=== PATIENT | male | born 1965 | race Caucasian/White ===

== ENCOUNTER 2017-06-20 11:48 | Emergency (ER) | payer OTHER ==
[~2017-06-20] VITALS: Ht 162.6 cm; Wt 66.5 kg
[~2017-06-20 11:48] MED LIST: AMLO5TAB8 PO; AMOX500C25 PO; AZIT250T8 PO; COZ50 PO; METO50TA99 PO; SACC250C1 PO
[2017-06-20 12:28] VITALS: BP 145/89
--- NOTE | 2017-06-20 13:55 | NUR ---
PATIENT PRESENTS TO ED WITH C/O LEFT EYE PAIN WITH HEAD ACHE SINCE TUESDAY; DENIES FOREIGN BODY, N/V;HX OF DM, HTN;RX OF CLONIDINE, 0.35MG QD, ENALAPRIL /[id number] BID, METOPROLOL 100MG BID, RENVELA TAB 800MG TID . LT EYE IE REDDENED;DENIES N/V/D; SKIN IS PINK/WARM/DRY; AAOX4 WITH EVEN AND STEADY GAIT; LUNGS CLEAR BL; HR EVEN AND REGULAR; PT DENIES ANY FEVER, CP, SOB, OR COUGH AT THIS TIME; PATIENT STATES PAIN OF 8/10 AT THIS TIME;PATIENT POSITIONED FOR COMFORT; HOB ELEVATED; BEDRAILS UP X2; BED DOWN. ER MD MADE AWARE OF PT STATUS.
--- NOTE | 2017-06-20 15:04 | NUR ---
XRAY AT BEDSIDE.
[2017-06-20 15:05] LABS: EOSINOPHILS # (AUTO) 0.1 K/uL (0-0.4); HEMOGLOBIN 13.1 g/dL (12.0-18.0); NEUTROPHILS # (AUTO) 2.9 K/uL (1.8-7.7); PLATELET COUNT (AUTO) 137 K/uL (140-450)
[2017-06-20 15:10] LABS: BASOPHILS # (AUTO) 0.4 K/uL (0.00-0.22); HEMATOCRIT 40.2 % (36-52); LYMPHOCYTES # (AUTO) 1.6 K/uL (2.0-11.5); MEAN CORPUSCULAR HEMOGLOBIN 32 pg (27-31); MEAN CORPUSCULAR HGB CONC 33 g/dL (33-37); MEAN CORPUSCULAR VOLUME 97 fL (80-94); MONOCYTES # (AUTO) 0.8 K/uL (0.8-1.0); RED BLOOD CELL COUNT(AUTO) 4.13 MIL/uL (4.20-6.10); RED CELL DISTRIBUTION WIDTH 13.6 % (11.6-13.7); WHITE BLOOD COUNT (AUTO) 5.8 K/uL (4.8-10.8)
--- NOTE | 2017-06-20 15:10 | NUR ---
US AT BEDSIDE.
[2017-06-20 15:49] LABS: ALBUMIN 3.5 g/dL (3.4-5.0); CARBON DIOXIDE 33.8 mmol/L (21-32); POTASSIUM 5.8 mmol/L (3.5-5.1); TOTAL BILIRUBIN 0.6 mg/dL (0.0-1.0)
[2017-06-20 15:52] LABS: CREATININE 8.9 mg/dL (0.7-1.3)
[2017-06-20 16:05] LABS: PROTHROMBIN TIME 10.4 secs (10.8-13.4)
--- NOTE | 2017-06-20 16:30 | NUR ---
DR PINO AT BEDSIDE.
--- NOTE | 2017-06-20 16:34 | NUR ---
BP OF 160/100 ER MD NOTIFIED;
[2017-06-20] MEDS ORDERED: SODIUM POLYSTYRENE 15 GM/60 ML UDBTL PO ONE (16:35)
--- NOTE | 2017-06-20 16:55 | NUR ---
Patient discharged with v/s stable. Written and verbal after care instructions given and explained. Patient verbalized understanding. Ambulatory with steady gait. All questions addressed prior to discharge. Advised to follow up with AN OPTHALMOLOGIST IN [place].
[2017-06-20 16:56] VITALS: BP 160/100
== END 2017-06-20 16:55 | disposition home or self-care (01) ==
LOC: MED 11:48
DX: H33.22 Serous retinal detachment, left eye (principal); I10 Essential (primary) hypertension
CPT/HCPCS: 36415; 70450; 70480; 71010; 76881; 80053; 85025; 85610; 85730; 93005; 99285; Q0092

== ENCOUNTER 2017-10-16 10:45 | Inpatient (IN) | payer OTHER ==
[~2017-10-16] VITALS: Ht 162.6 cm; Wt 66.7 kg
[~2017-10-16 10:45] MED LIST changes: +AZIT250T11 PO; -AZIT250T8 PO
[2017-10-16 10:53] VITALS: BP 109/52
--- NOTE | 2017-10-16 10:53 | NUR ---
PATIENT PRESENTS TO ED WITH C/O SOB, COUGH AND CONGESTION . PT STATES HIS SYMPTOMS STARTED LAST NIGHT . PT C/O CHEST PAIN DUE TO COUGHT. DENIES N/V/D; SKIN IS PINK/WARM/DRY; AAOX4 WITH EVEN AND STEADY GAIT; BREATHING LABORED AND SHALLOW. HR EVEN AND REGULAR; PT DENIES ANY FEVER AT THIS TIME; AT THIS TIME; VSS; PATIENT POSITIONED FOR COMFORT; HOB ELEVATED; BEDRAILS UP X2; BED DOWN. ER MD MADE AWARE OF PT STATUS.
[2017-10-16] MEDS ORDERED: FURO-571 PO (11:02)
[2017-10-16] MEDS ORDERED: NIFE60TE5 PO (11:02)
[2017-10-16] MEDS ORDERED: ASPIRIN 81 MG TAB.CHEW PO ONE (11:25)
[2017-10-16] MEDS ORDERED: NITROGLYCERIN 2% 1 GM PKT TP ONE (11:25)
[2017-10-16] MEDS ORDERED: ALBUTEROL 0.083% 2.5 MG/3 ML NEBU INH ONE (11:25)
[2017-10-16] MEDS ORDERED: ENALAPRILAT 2.5 MG/2 ML VIAL IVP ONE (11:25)
[2017-10-16 11:39] LABS: BASOPHILS # (AUTO) 0.3 K/uL (0.00-0.22); BASOPHILS % (AUTO) 3.3 % (0.0-2.0); EOSINOPHILS # (AUTO) 0.2 K/uL (0-0.4); HEMATOCRIT 40.1 % (36-52); HEMOGLOBIN 12.8 g/dL (12.0-18.0); LYMPHOCYTES # (AUTO) 1.1 K/uL (2.0-11.5); LYMPHOCYTES % (AUTO) 12.3 % (20.5-51.1); MEAN CORPUSCULAR HEMOGLOBIN 32 pg (27-31); MEAN CORPUSCULAR HGB CONC 32 g/dL (33-37); MEAN CORPUSCULAR VOLUME 99 fL (80-94); MONOCYTES # (AUTO) 0.7 K/uL (0.8-1.0); MONOCYTES % (AUTO) 8.2 % (1.7-9.3); NEUTROPHILS # (AUTO) 6.5 K/uL (1.8-7.7); NEUTROPHILS % (AUTO) 74.2 % (42.2-75.2); PLATELET COUNT (AUTO) 337 K/uL (140-450); RED BLOOD CELL COUNT(AUTO) 4.03 MIL/uL (4.20-6.10); RED CELL DISTRIBUTION WIDTH 16.1 % (11.6-13.7); WHITE BLOOD COUNT (AUTO) 8.8 K/uL (4.8-10.8)
[2017-10-16 12:01] LABS: ALBUMIN 3.1 g/dL (3.4-5.0); ANION GAP 22.7 (8-16); CARBON DIOXIDE 21.8 mmol/L (21-32); POTASSIUM 5.5 mmol/L (3.5-5.1); TOTAL BILIRUBIN 0.6 mg/dL (0.0-1.0)
[2017-10-16 12:06] LABS: CREATININE 12.9 mg/dL (0.7-1.3)
[2017-10-16] MEDS ORDERED: HYDROcodone/APAP 7.5/325 MG 1 TAB PO PRN (12:45)
[2017-10-16] MEDS ORDERED: NITROGLYCERIN 0.4 MG TAB SL PRN (12:45)
[2017-10-16] MEDS ORDERED: ALBUTEROL SULFATE/IPRATROPIU 3 ML SOL IH PRN (12:45)
[2017-10-16] MEDS ORDERED: DOCUSATE SODIUM 100 MG GELCAP PO PRN (12:45)
[2017-10-16] MEDS ORDERED: ONDANSETRON 4 MG/2 ML VIAL IVP PRN (12:45)
[2017-10-16] MEDS ORDERED: HEPARIN PER PHARMACY MC PRN (12:45)
[2017-10-16] MEDS ORDERED: IPRATROPIUM 0.02% 0.5 MG/2.5 ML NEBU INH PRN (12:45)
[2017-10-16] MEDS ORDERED: ACETAMINOPHEN 325 MG TAB PO PRN (12:45)
[2017-10-16] MEDS ORDERED: SODIUM POLYSTYRENE 15 GM/60 ML UDBTL PO SCH (13:30)
[2017-10-16 13:49] LABS: PROTHROMBIN TIME 10.9 secs (10.8-13.4)
[2017-10-16 14:04] LABS: FREE T4 (FREE THYROXINE) 0.78 ng/dL (0.76-1.46); MAGNESIUM 2.5 mg/dL (1.8-2.4); PHOSPHORUS 5.5 mg/dL (2.5-4.9); THYROID STIMULATING HORMONE 4.7 uIU/mL (0.34-3.74)
--- NOTE | 2017-10-16 14:05 | NUR ---
RECEIVED PT REPORT FROM ER NURSE. PT IS AWAKE, ALERT AND ORIENTED X4. PT IS AMBULATORY WITH STEADY GAIT. PT CHIEF COMPLAIN WAS SOB AND COUGH. DX OF CHEST PAIN. HX OF ESRD AND ON HD MWF. LEFT AV SHUNT NOTED. BRUIT AND THRILL DETECTED. SIGN FOR NO BP ON LEFT SIDE POSTED. PT DENIES PAIN AT THIS TIME. NO S/S OF SOB OR ACUTE DISTRESS. PT IS ON 4L O2 VIA NON-REBREATHER. MRSA DONE. IV CATH NOTE TO THE RIGHT FA, 22G, FLUSHED, PATENT, INTACT. PT HAS BEEN ORIENTED TO THE ROOM, CALL LIGHT WITHIN REACH. WILL CONTINUE TO MONITOR.
--- NOTE | 2017-10-16 14:05 | NUR ---
Patient will be admitted to care of DR SOTO . Admited to [facility]. Will go to room 112A. Belongings list completed. Report to PRUDENCIO HOLGUIN.
[2017-10-16] MEDS: NACL 0.9% 1,000 ML IV SCH (14:28)
--- NOTE | 2017-10-16 14:30 | NUR ---
INITIAL ASSESSMENT DONE. MEDICAL HX OBTAINED WITH HELP OF PT'S DAUGHTER. PT AGREED TO USE HIS DAUGHTER EXTENSION AGENT.
[2017-10-16 14:38] VITALS: BP 195/129
--- NOTE | 2017-10-16 14:48 | NUR ---
FOUND PT ON NRB CHANGED TO 3L N/C SPO2 94 BS CLEAR PLACED NEW HHN SET UP BEDSIDE
[2017-10-16] MEDS ORDERED: IPRATROPIUM 0.02% 0.5 MG/2.5 ML NEBU INH SCH (15:00)
--- NOTE | 2017-10-16 15:30 | NUR ---
PT IS HAVING ECHOCARDIOGRAM. TURKEY SANDWICH LEFT AT THE BEDSIDE TABLE. PT IS AWARE.
[2017-10-16] MEDS ORDERED: FUROSEMIDE PO SCH (15:40)
[2017-10-16 16:00] VITALS: BP 189/131
[2017-10-16] MEDS ORDERED: LOSARTAN 50 MG TAB PO SCH (16:00)
[2017-10-16] MEDS ORDERED: FUROSEMIDE 40 MG TAB PO SCH (16:00)
[2017-10-16] MEDS ORDERED: NIFEdipine 60 MG TABER PO SCH (16:00)
--- NOTE | 2017-10-16 16:30 | NUR ---
NOTIFIED PHYSICIAN ABOUT ECHO FINDINGS.
[2017-10-16] MEDS: CALCIUM ACETATE 667 MG TAB PO SCH (16:31)
--- NOTE | 2017-10-16 16:49 | NUR ---
INSTRUCTED PT FOR SPUTUM SAMPLE CUP LEFT AT BEDSIDE
[2017-10-16] MEDS: AZITHROMYCIN 250 MG TAB PO SCH (17:15)
[2017-10-16] MEDS ORDERED: LEVOFLOXACIN 750 MG/D5W PREMIX 150 ML IV SCH (17:30)
--- NOTE | 2017-10-16 18:05 | NUR ---
PT STARTED COUGHING AND VOMITEDX1. NOTIFIED DR BLANCA. WILL PUT IN NEW ORDERS.
[2017-10-16] MEDS ORDERED: hydrALAZINE 20 MG/ML VIAL IVP SCH (18:10)
[2017-10-16] MEDS ORDERED: guaiFENesin/CODEINE 100/10MG 5 ML UDC PO PRN (18:10)
--- NOTE | 2017-10-16 18:35 | NUR ---
PTT VALUE CAME BACK, CALLED [facility], WAITING FOR APPROVAL AND INSTRUCTIONS.
[2017-10-16 18:49] VITALS: BP 186/115
[2017-10-16] MEDS: ALBUTEROL SULFATE/IPRATROPIU 3 ML SOL IH SCH (18:58)
[2017-10-16] MEDS: hePARIN / DEXT 5% PREMIX 250 ML IV SCH (19:12)
--- NOTE | 2017-10-16 19:20 | NUR ---
HEPARIN BOLUS GIVEN, HEPARIN DRIP STARTED 800 UNITS/ HR
--- NOTE | 2017-10-16 19:35 | NUR ---
ROBITUSSIN GIVEN TO INDUSTRIAL TRACTOR DRIVER NURSE.
--- NOTE | 2017-10-16 19:35 | NUR ---
ENDORSED PT TO PROJECT ENGINEERING DIRECTOR NURSE. PT IN STABLE CONDITION.
--- NOTE | 2017-10-16 19:36 | NUR ---
RECEIVED REPORT FROM DAY NURSE, PT IN STABLE CONDITION. NO S/S OF DISTRESS NOTED. PT IS AAOX4, ON 3L 02 VIA NC. IV TO R FA 22G, PATENT AND INTACT INFUSING WELL, HEPARIN DRIP RUNNING AT THIS TIME. IV TO R HAND 20G PATENT AND INTACT SALINE LOCK. SKIN INTACT, WARM AND DRY TO TOUCH, COLOR WNL. FAMILY IS AT THE BEDSIDE. INITIAL ASSESSMENT COMPLETED PLAN OF CARE DISCUSSED WITH PT AND FAMILY, VERBALIZED UNDERSTANDING. ALL SAFETY PRECAUTIONS MET, CALL LIGHT WITHIN REACH, BOARD UPDATED WILL CONTINUE TO MONITOR.
--- NOTE | 2017-10-16 19:53 | NUR ---
LAB CALLED WITH CRITICAL LAB VALUE FOR TROPONIN 0.431
--- NOTE | 2017-10-16 19:56 | NUR ---
MADE. DR. HERNÁNDEZ AWARE OF CRITICAL LAB VALUE FOR TROPONIN, NO CHANGE IN ORDERS AT THIS TIME
[2017-10-16 20:00] VITALS: BP 154/84
[2017-10-16] MEDS ORDERED: LORazepam 1 MG TAB PO SCH (20:05)
--- NOTE | 2017-10-16 20:10 | NUR ---
PT VERBALIZED THAT HE IS FEELING ANXIOUS AND HAVING ANXIETY, MADE DR. HERNÁNDEZ AWARE. HE WILL PUT IN ORDERS
[2017-10-16] MEDS: ATORVASTATIN 20 MG TAB PO SCH (20:16)
[2017-10-16] MEDS: LOSARTAN 50 MG TAB PO SCH (20:17)
[2017-10-16] MEDS ORDERED: METOPROLOL 25 MG TAB PO SCH (21:00)
--- NOTE | 2017-10-16 23:02 | NUR ---
PAGED DR. URBAN IN REGARDS TO PTS ORDER FOR DIALYSIS. DR. URBAN STATED HE HAS NOT SEEN THE PT YET, HE WILL SEE PT TOMORROW AND PUT ORDER IN.
[2017-10-17] VITALS: BP 152/84
--- NOTE | 2017-10-17 00:30 | NUR ---
MADE DR. HERNÁNDEZ AWARE OF NO CURRENT ORDERS FOR THIRD TROPONIN DRAW.
--- NOTE | 2017-10-17 01:39 | NUR ---
CHECKED PTS BP AND IT IS NOW 152/97 PULSE 101, NOTIFIED DR. HERNÁNDEZ, ORDERS TO BE PUT IN
[2017-10-17] MEDS ORDERED: METOPROLOL 25 MG TAB PO SCH (01:40)
--- NOTE | 2017-10-17 01:41 | NUR ---
EXTRA DOSE OF METOPROLOL TO BE STARTED 10/17/17 AT 0900
--- NOTE | 2017-10-17 02:15 | NUR ---
EXTRA DOSE METOPROLOL TO BE GIVEN NOW
--- NOTE | 2017-10-17 03:46 | NUR ---
PAGED LAB FOR UPDATED ON PTT LAB RESULTS NO ANSWER. WILL TRY AGAIN
[2017-10-17 04:00] VITALS: BP 150/75
--- NOTE | 2017-10-17 04:01 | NUR ---
YOAN IN LAB REPORTS THAT PTT IS 48.3, WILL FAX OVER RESULTS. NOT SHOWING IN THE COMPUTER. THIS IS WITHIN THE THERAPEUTIC RANGE.
[2017-10-17] MEDS: ALBUTEROL SULFATE/IPRATROPIU 3 ML SOL IH SCH ×3 (06:50→19:17)
--- NOTE | 2017-10-17 07:20 | NUR ---
REPORT GIVEN TO DAY NURSE FOR CONTINUITY OF CARE, PT IN STABLE CONDITION. NO S/S OF DISTRESS NOTED. IV PATENT AND INTACT, INFUSING WELL. NO REDNESS OR SWELLING NOTED
--- NOTE | 2017-10-17 07:30 | NUR ---
RECEIVED PT AAOX4. NO SOB NOTED. NO C/O PAIN AT THIS TIME. IV TO RT HAND HL, IV TO RT FORE ARM WITH HEPARIN DRIP RUNNING. LT LEFT ARM AV SHUNT, BRUITS AND THRILL HEARD. PT FOR HD MWF. CHEST CLEAR. ABDOMEN SOFT, BOWEL SOUNDS PRESENT. NO EDEMA NOTED. INSTRUCTED PT TO CALL FOR ASSISTANCE, CALL LIGHT WITHIN REACH. PT VERBALIZED UNDERSTANDING. Addendum: 10/17/17 at 1012 by Dorie Cornejo RN DISREGARD ABOVE NOTES, WRONG PT.
--- NOTE | 2017-10-17 07:30 | NUR ---
RECEIVED PT AAOX4. NO SOB NOTED. NO C/O PAIN AT THIS TIME. IV TO RT HAND HL, IV TO RT FORE ARM WITH HEPARIN DRIP RUNNING. LT LEFT ARM AV SHUNT, BRUITS AND THRILL HEARD. PT FOR HD MWF. CHEST DIMINISHED AIR ENTRY TO THE BASES, SLIGHT WHEEZING HEARD BILATERALLY. . ABDOMEN SOFT, BOWEL SOUNDS PRESENT. NO EDEMA NOTED. INSTRUCTED PT TO CALL FOR ASSISTANCE, CALL LIGHT WITHIN REACH. PT VERBALIZED UNDERSTANDING.
[2017-10-17 08:00] VITALS: BP 147/82
[2017-10-17 08:24] LABS: BASOPHILS # (AUTO) 0.3 K/uL (0.00-0.22); BASOPHILS % (AUTO) 3.4 % (0.0-2.0); EOSINOPHILS # (AUTO) 0.2 K/uL (0-0.4); EOSINOPHILS % (AUTO) 2.1 % (0.0-4.0); HEMATOCRIT 37.6 % (36-52); HEMOGLOBIN 12.4 g/dL (12.0-18.0); LYMPHOCYTES # (AUTO) 1.5 K/uL (2.0-11.5); LYMPHOCYTES % (AUTO) 18.9 % (20.5-51.1); MEAN CORPUSCULAR HEMOGLOBIN 33 pg (27-31); MEAN CORPUSCULAR HGB CONC 33 g/dL (33-37); MEAN CORPUSCULAR VOLUME 99 fL (80-94); MONOCYTES # (AUTO) 0.8 K/uL (0.8-1.0); MONOCYTES % (AUTO) 9.8 % (1.7-9.3); NEUTROPHILS # (AUTO) 5.4 K/uL (1.8-7.7); NEUTROPHILS % (AUTO) 65.8 % (42.2-75.2); PLATELET COUNT (AUTO) 275 K/uL (140-450); RED CELL DISTRIBUTION WIDTH 15.7 % (11.6-13.7); WHITE BLOOD COUNT (AUTO) 8.2 K/uL (4.8-10.8)
--- NOTE | 2017-10-17 08:48 | NUR ---
instructed pt on deep cough to give sputum cup at bedside
[2017-10-17] MEDS: METOPROLOL 25 MG TAB PO SCH ×3 (09:00→20:29)
[2017-10-17] MEDS: LOSARTAN 50 MG TAB PO SCH ×3 (09:00→20:29)
[2017-10-17] MEDS ORDERED: LISINOPRIL 5 MG TAB PO SCH (09:00)
[2017-10-17] MEDS: NIFEdipine 60 MG TABER PO SCH (09:00)
[2017-10-17 09:03] LABS: ANION GAP 23.3 (8-16); CARBON DIOXIDE 21.7 mmol/L (21-32)
[2017-10-17 09:05] LABS: CHOL/HDL RATIO 2.7 (1-4.5); MAGNESIUM 2.5 mg/dL (1.8-2.4)
[2017-10-17] MEDS: CALCIUM ACETATE 667 MG TAB PO SCH ×2 (09:07→17:50)
[2017-10-17] MEDS: AZITHROMYCIN 250 MG TAB PO SCH (09:08)
[2017-10-17] MEDS: FUROSEMIDE 40 MG TAB PO SCH (09:08)
[2017-10-17] MEDS: ASPIRIN 81 MG TAB.CHEW PO SCH (09:09)
[2017-10-17] MEDS: LACTOBACILLUS RHAMNOSUS GG 1 EACH CAP PO SCH (09:09)
--- NOTE | 2017-10-17 09:11 | NUR ---
PATIENT HAS BEEN SCREENED AND CATEGORIZED MODERATE NUTRITION RISK. PATIENT WILL BE SEEN WITHIN 3-5 DAYS OF ADMISSION. 10/18/17-10/20/[address]
[2017-10-17 09:14] LABS: CREATININE 14.8 mg/dL (0.7-1.3)
--- NOTE | 2017-10-17 09:30 | NUR ---
BLOOD PRESSURE MEDS HELD DUE TO HEMODIALYSIS TODAY.
--- NOTE | 2017-10-17 10:14 | NUR ---
SPOKE WITH LARS FROM [facility] THIS AM. I GAVE HIM THE PHONE NUMBER FOR THE RESIDENT. FAXED INITIAL REVIEW TO [facility] [phone] PHONE LARS [phone]
[2017-10-17 12:00] VITALS: BP 157/102
--- NOTE | 2017-10-17 12:14 | NUR ---
SPOKE WITH MEDICAL RECORD CLERK REGARDING PTT RESULT DRAWN AROUND 8AM, MEDICAL RECORD CLERK STATED THEY SENT IT IN [facility] AND WILL TAKE ABOUT 3 HRS FOR THE RESULTS. WILL NOTIFY RESIDENT IN CHARGE.
--- NOTE | 2017-10-17 12:15 | NUR ---
LATEST BP: 157/102 MMHG, HR: 100/ MIN, PT ASYMPTOMATIC, NO SOB NOTED. NO C/O PAIN. WILL RESUME SOME BP MEDS THAT WAS HELD EARLIER.
--- NOTE | 2017-10-17 12:31 | NUR ---
COZAAR AND LOPRESSOR PO RESUMED DUE TO INCREASED BP. NO SCHED FOR HD YET.
[2017-10-17] MEDS: NACL 0.9% 1,000 ML IV SCH (12:42)
[2017-10-17] MEDS: hePARIN / DEXT 5% PREMIX 250 ML IV SCH (14:34)
--- NOTE | 2017-10-17 14:50 | NUR ---
HEMODIALYSIS STARTED AT THE BEDSIDE. PT STABLE.
--- NOTE | 2017-10-17 15:00 | NUR ---
PTT ORDERED AT 1430 WAS NOT DRAWN, ACCORDING TO MACHINE I CUTTER AURELIO, RESULT IS NOT ACCURATE WHEN PT HAS ON GOING DIALYSIS AT THE TIME OF BLOOD DRAW. WILL CALL LAB WHEN HD IS DONE.
[2017-10-17 16:00] VITALS: BP 163/107
--- NOTE | 2017-10-17 17:50 | NUR ---
HEMODIALYSIS COMPLETED. 2000 MLS OUT. PT LATEST BP: 169/99 MMHG, HR: 86/MIN, 95% SATS ON ROOM AIR.
--- NOTE | 2017-10-17 18:00 | NUR ---
CALLED AURELIO FROM THE LAB, STATED THEY WILL COME TO DRAW PTT FOR PT AND WILL SEND IT TO [facility].
--- NOTE | 2017-10-17 19:06 | NUR ---
PT RESTING. NO SOB NOTED. NO COMPLAINTS MADE. FAMILY AT THE BEDSIDE. WILL ENDORSE TO NEXT SHIFT NURSE FOR CONTINUITY OF CARE.
[2017-10-17 20:00] VITALS: BP 189/102
--- NOTE | 2017-10-17 20:00 | NUR ---
CALLED LAB TO ASK IF PTT VALUE IS AVAILABLE YET, THEY SAID NO AND THAT IS HAS TO BE SENT TO [facility] AND TO CALL BACK, AROUND 2200
[2017-10-17] MEDS ORDERED: CLINDAMYCIN 600 MG/4 ML VIAL ONE (20:18)
[2017-10-17] MEDS: ATORVASTATIN 20 MG TAB PO SCH (20:29)
--- NOTE | 2017-10-17 20:29 | NUR ---
NOTIFIED DR. SOLARES OF PTS BP 189/102, AND PT C/O HEADACHE. NO NEW ORDERS AT THIS TIME.
--- NOTE | 2017-10-17 20:30 | NUR ---
CHARGE NURSE YU AWARE OF PTT VALUE NOT BEING AVAILABLE
[2017-10-17] MEDS: CLINDAMYCIN 600 MG in DEXTROSE 5% 50 ML IV SCH (20:36)
--- NOTE | 2017-10-17 21:30 | NUR ---
CALLED BACK IN LAB JUST TO CHECK TO SEE IF PTT RESULTS HAD COME BACK YET, STATED THAT NOTHING HAS HAPPENED YET
--- NOTE | 2017-10-17 22:00 | NUR ---
CALLED LAB TO ASK AGAIN ABOUT PTT RESULTS. THEY STATED THAT IT WAS JUST SENT OUT RECENTLY TO [facility] BECAUSE THEY ALL GO AT THE SAME TIME AND OTHER TESTS WERE BEING DONE. THEY SAID THEY DO NOT KNOW WHEN IT WILL BE BACK.
--- NOTE | 2017-10-17 22:15 | NUR ---
EXPLAINED TO LAB THAT THE PTT RESULTS ARE TIME SENSITIVE AND NEED TO BE ON TIME, THEY STATED THAT LABS WERE JUST SENT TO [facility] NOT THAT LONG AGO AND I WILL JUST HAVE TO WAIT
--- NOTE | 2017-10-17 23:20 | NUR ---
CHARGE NURSE YU NOTIFIED OF NOT PTT VALUE RESULTS YET
--- NOTE | 2017-10-17 23:20 | NUR ---
NOTIFIED DR. HERNÁNDEZ OF PTT RESULTS JUST BEING SENT TO [facility] HE STATED ITS OKAY AND TO KEEP DRIP RUNNING FOR NOW
--- NOTE | 2017-10-17 23:29 | NUR ---
APTT VALUE STILL NOT POSTED. CALLED LAB TO SEE WHAT IS GOING ON. YOAN STATED THAT THEY JUST GOT RESULTS FROM [facility] AND PUT ME ON HOLD. WHEN SHE GOT BACK ON PHONE SHE STATED THIS PTS RESULTS WERE NOT IN THE GROUP THAT CAME BACK. SHE STATED SHE WILL CALL [facility] AND FIND OUT WHAT IS GOING ON
--- NOTE | 2017-10-17 23:56 | NUR ---
YOAN FROM LAB CALLED BACK, SHE STATED THAT WHEN SHE CALLED [facility] TO ASK ABOUT RESULTS [facility] STATED THEY NEVER RECEIVED SAMPLE. YOAN CALLED ETHAN FROM LAB AND NEW TRAINEE WHO BOTH STATED THEY HAD SEEN IT AND LEFT IT OUT FOR [facility] TO MARKETING AGENT. [facility] DENIES RECEIVING IT. YOAN STATES AT THIS POINT IT IS MISSING AND NOTHING CAN BE DONE AT THIS POINT EXCEPT TO ASK THE DRMaryanne WHAT HE WANTS TO DO. CHARGE NURSE YU MADE AWARE
--- NOTE | 2017-10-17 23:59 | NUR ---
YOAN IN LAB MADE AWARE, SHE STATED SHE CALLED [facility] AND LET THEM KNOW THIS IS IMPORTANT AND TO BE HERE ON TIME TO BUTTON MAKER AND INSTALLER
--- NOTE | 2017-10-17 23:59 | NUR ---
MADE DR. HERNÁNDEZ AWARE OF SITUATION WITH MISSING PTT LAB WORK, HE STATED TO JUST DRAW THE LAB FROM THE SAME TIME IT WAS DONE LAST NIGHT AT THIS POINT Addendum: 10/18/17 at 0136 by Fabiola Escudero RN CORRECTION, LAST NIGHT MEANING IN AT 0120 IN THE AM ON 10/17/17. LAB TO BE DRAWN AT 10/18/17 0120
[2017-10-18] VITALS: BP 170/92
--- NOTE | 2017-10-18 00:30 | NUR ---
MADE KSENIA FELICIANO AWARE OF PTT SITUATION, THE STEPS THAT WERE TAKEN AND OUTCOME
[2017-10-18] MEDS: hePARIN / DEXT 5% PREMIX 250 ML IV SCH ×2 (00:46→04:30)
--- NOTE | 2017-10-18 01:05 | NUR ---
YOAN FROM LAB HERE TO DRAW PTT. SHE STATED SHE TALKED WITH [facility] AND THE HIGH LEAD YARDER WILL BE HERE AT 130 FOR ENVIRONMENTAL EMERGENCIES ASSISTANT
--- NOTE | 2017-10-18 02:40 | NUR ---
CALLED YOAN IN LAB AGAIN, SHE STATED NO RESULTS HAVE COME IN YET. SHE SAID SPECIMEN WAS PICKED UP AN HOUR AGO.
--- NOTE | 2017-10-18 03:38 | NUR ---
CALLED YOAN TO ASK ABOUT PTT RESULTS, SHE SAYS THAT THERE IS NO RESULTS, SHE WILL CALL [facility]
--- NOTE | 2017-10-18 03:44 | NUR ---
CALLED DR. HERNÁNDEZ TO ASK IF HE STILL WANTS TO KEEP HEP DRIP GOING BECAUSE [facility] STILL HAS NOT RESULTED. HE STATED YES.
[2017-10-18 04:00] VITALS: BP 165/95
--- NOTE | 2017-10-18 04:00 | NUR ---
YOAN IN THE LAB CALLED PTT IS NOW BACK AND IT IS 31.2 WILL ADMINISTER HEPARIN ORDERED
[2017-10-18] MEDS: CLINDAMYCIN 600 MG in DEXTROSE 5% 50 ML IV SCH (05:25)
[2017-10-18] MEDS ORDERED: CLINDAMYCIN 600 MG/4 ML VIAL ONE (05:27)
[2017-10-18 06:38] LABS: HEMATOCRIT 33.9 % (36-52); HEMOGLOBIN 11.3 g/dL (12.0-18.0); MEAN CORPUSCULAR HEMOGLOBIN 33 pg (27-31); MEAN CORPUSCULAR HGB CONC 33 g/dL (33-37); MEAN CORPUSCULAR VOLUME 98 fL (80-94); PLATELET COUNT (AUTO) 232 K/uL (140-450); RED BLOOD CELL COUNT(AUTO) 3.45 MIL/uL (4.20-6.10); RED CELL DISTRIBUTION WIDTH 15.9 % (11.6-13.7); WHITE BLOOD COUNT (AUTO) 6.4 K/uL (4.8-10.8)
[2017-10-18 07:02] LABS: EOSINOPHILS % (MANUAL) 2 % (0-4); LYMPHOCYTES % (MANUAL) 30 % (20-46); MAGNESIUM 1.8 mg/dL (1.8-2.4); MONOCYTES % (MANUAL) 10 % (5-12); PHOSPHORUS 6.1 mg/dL (2.5-4.9)
[2017-10-18 07:07] LABS: CREATININE 10.6 mg/dL (0.7-1.3)
--- NOTE | 2017-10-18 07:10 | NUR ---
REPORT GIVEN TO DAY NURSE FOR CONTINUITY OF CARE, PT IN STABLE CONDITION. NO S/S OF DISTRESS. IV PATENT AND INTACT, NO REDNESS OR SWELLING
--- NOTE | 2017-10-18 07:30 | NUR ---
RECEIVED PT AAOX4. NO SOB NOTED. NO C/O PAIN AT THIS TIME. IV TO RT HAND NS AT TKO AND IV TO RT FORE ARM WITH HEPARIN DRIP RUNNING AT 1250 UNITS/HR. LT LEFT ARM AV SHUNT, BRUITS AND THRILL HEARD. CHEST DIMINISHED AIR ENTRY TO THE BASES, SLIGHT WHEEZING HEARD BILATERALLY. ABDOMEN SOFT, BOWEL SOUNDS PRESENT. NO EDEMA NOTED. INSTRUCTED PT TO CALL FOR ASSISTANCE, CALL LIGHT WITHIN REACH. PT VERBALIZED UNDERSTANDING.
[2017-10-18 08:00] VITALS: BP 167/113
[2017-10-18 08:18] LABS: HEPATITIS A ANTIBODY IGM Negative (Negative); HEPATITIS B CORE AB TOTAL Negative (Negative); HEPATITIS B SURFACE ANTIBODY Reactive (.); HEPATITIS B SURFACE ANTIGEN Negative (Negative)
[2017-10-18] MEDS: ALBUTEROL SULFATE/IPRATROPIU 3 ML SOL IH SCH (08:27)
[2017-10-18] MEDS: METOPROLOL 25 MG TAB PO SCH (08:41)
[2017-10-18] MEDS: CALCIUM ACETATE 667 MG TAB PO SCH (08:41)
[2017-10-18] MEDS: FUROSEMIDE 40 MG TAB PO SCH (08:42)
[2017-10-18] MEDS: NIFEdipine 60 MG TABER PO SCH (08:42)
[2017-10-18] MEDS: LOSARTAN 50 MG TAB PO SCH (08:42)
[2017-10-18] MEDS: LACTOBACILLUS RHAMNOSUS GG 1 EACH CAP PO SCH (08:42)
[2017-10-18] MEDS: ASPIRIN 81 MG TAB.CHEW PO SCH (08:43)
[2017-10-18 09:30] VITALS: BP 168/86
--- NOTE | 2017-10-18 10:00 | NUR ---
HEPARIN DRIP DISCONTINUED ORDERED.
--- NOTE | 2017-10-18 10:29 | NUR ---
RECEIVED CALL FROM LARS FROM [facility]. I GAVE HIM VERBAL REPORT AND INFORMED HIM THAT PATIENT IS DISCHARGED TODAY. FAXED DISCHARGE SUMMARY, AND CONSULTS FROM DR. URBAN, DR. Aleida OWEN AND DR. CHAUHAN. FAXED [phone] PHONE LARS [phone].
[2017-10-18] MEDS ORDERED: PNEUMOCOCCAL VACCINE 23 MCG/0.5 ML VIAL IMVAC SCH (11:00)
[2017-10-18] MEDS ORDERED: INFLUENZA VIRUS VACCINE QUAD 0.5 ML SYR IMVAC SCH (11:00)
[2017-10-18] MEDS ORDERED: LABETALOL 100 MG/20 ML VIAL IVP SCH (11:00)
[2017-10-18] MEDS ORDERED: LEVO750T2 PO (11:03)
[2017-10-18] MEDS ORDERED: PHO667 PO (11:03)
[2017-10-18] MEDS ORDERED: ASPI81CT95 PO (11:03)
[2017-10-18] MEDS ORDERED: ATOR20TA40 PO (11:03)
[2017-10-18] MEDS ORDERED: LACT10CA PO (11:04)
[2017-10-18 12:13] VITALS: BP 158/92
--- NOTE | 2017-10-18 12:30 | NUR ---
DISCHARGE INSTRUCTIONS GIVEN TO PT WHICH VERBALIZED FULL UNDERSTANDING OF THE TEACHINGS GIVEN AND THE NEED TO FOLLOW UP WITH PCP WITHIN 7 DAYS. PT ALSO MADE AWARE THAT HIS PRESCRIPTIONS WERE ALREADY SENT TO PT'S PREFERRED PHARMACY AND ARE READY FOR DOCK BUILDER. ARM BANDS AND IV REMOVED, CANNULA TIP INTACT.
--- NOTE | 2017-10-18 12:55 | NUR ---
PT WHEELED TO THE PARKING LOT IN STABLE CONDITION. NO SOB NOTED. NO C/O PAIN AT THIS TIME. PT IS D/C HOME WITH FAMILY.
== END 2017-10-18 12:55 | disposition home or self-care (01) | DRG 280 ==
LOC: MED 10:45 → MTU 12:56
PROVIDERS: ADMIT Family Medicine; ATTEND Family Medicine
PROC: 5A1D70Z Performance of Urinary Filtration, Intermittent, Less than 6 Hours Per Day (ICD-10-PCS; principal; 2017-10-17)
PROC: 3E0234Z Introduction of Serum, Toxoid and Vaccine into Muscle, Percutaneous Approach (ICD-10-PCS; 2017-10-18)
PROC: 3E0234Z Introduction of Serum, Toxoid and Vaccine into Muscle, Percutaneous Approach (ICD-10-PCS; 2017-10-18)
DX: I21.A1 Myocardial infarction type 2 (principal); J96.01 Acute respiratory failure with hypoxia; N17.0 Acute kidney failure with tubular necrosis; I13.2 Hypertensive heart and chronic kidney disease with heart failure and with stage 5 chronic kidney disease, or end stage renal disease; E44.0 Moderate protein-calorie malnutrition; J18.9 Pneumonia, unspecified organism; E11.22 Type 2 diabetes mellitus with diabetic chronic kidney disease; I42.9 Cardiomyopathy, unspecified; E83.39 Other disorders of phosphorus metabolism; N18.6 End stage renal disease; I16.1 Hypertensive emergency; M94.0 Chondrocostal junction syndrome [Tietze]; I50.9 Heart failure, unspecified; E87.5 Hyperkalemia; E83.41 Hypermagnesemia; R74.0 Nonspecific elevation of levels of transaminase and lactic acid dehydrogenase [LDH]; I16.0 Hypertensive urgency; K44.9 Diaphragmatic hernia without obstruction or gangrene; K40.20 Bilateral inguinal hernia, without obstruction or gangrene, not specified as recurrent; I25.10 Atherosclerotic heart disease of native coronary artery without angina pectoris; D63.8 Anemia in other chronic diseases classified elsewhere; Z99.2 Dependence on renal dialysis; Z23 Encounter for immunization; Z79.899 Other long term (current) drug therapy; Z68.25 Body mass index [BMI] 25.0-25.9, adult
CPT/HCPCS: 36415; 71045; 80048; 80053; 82150; 83036; 83605; 83690; 83735; 83880; 84100; 84439; 84443; 84484; 85025; 85610; 85730; 86704; 86706; 86708; 86709; 86803; 87040; 87070; 87081; 87205; 87340; 90658; 90732; 93005; 94640; 96374; 99285; J0360; J1644; J1956; J2405; J3490; J7060; J7613; J7620; Q0092